=== PATIENT | female | born 1995 | race African-American/Black ===

== ENCOUNTER 2018-03-27 01:39 | Observation (INO) ==
[2018-03-27 03:21] LABS: Apearance,Urine CLEAR (Clear); Bilirubin,Urine Negative (Negative); Blood, Urine Large mg/dL (Negative); Calcium Oxalate Crystals,Urine Occasional /HPF (Few); Glucose,Urine (UA) Negative (Negative); Ketones,Urine Negative (Negative); Nitrite,Urine Negative (Negative); Protein,Urine Negative; RBC,Urine 268 /HPF (0-4); Squamous Epithelial Cell,Urine Occasional /HPF (0-10); Urine Color Straw (Yellow); Urine Specific Gravity 1.005 (1.001-1.035); Urine Urobilinogen < 2.0 EU/DL (0.2-1.0); WBC,Urine 3 /HPF (0-6)
[2018-03-27 04:08] LABS: Basophils % 0.5 % (0.0-0.8); Eosinophils # 0.1 10*3/uL (0.0-0.87); Eosinophils % 1.8 % (0.00-10.9); Hematocrit 35.5 VOL% (35.7-47.0); Hemoglobin 11.6 GM/DL (12.0-16.0); Immature Granulocytes % 0.2 %; Immature Granulocytes Absolute 0.01 #; Lymphocytes # 2.1 10*3/uL (1.4-4.0); Mean Corpuscular HGB Conc 32.7 GM/DL (32-36); Mean Corpuscular Hemoglobin 29 PG (27-34); Mean Corpuscular Volume 87.4 FL (87-102); Mean Platelet Volume 9.5 FL (9.6-12.0); Monocytes # 0.4 10*3/uL (0.11-0.8); Monocytes % 6.4 % (1.7-12.7); Neutrophils # 3.6 10*3/uL (1.4-7.4); Neutrophils % 58.1 % (38.7-73.9); Platelet Count 269 T/CUMM (130-400); Red Blood Count 4.06 MC/CUMM (3.8-5.5); Red Cell Distribution Width 13.6 % (9.3-17.3); White Blood Count 6.2 T/CUMM (4-12)
[2018-03-27 04:21] LABS: Alanine Aminotransferase 14 U/L (13-56); Albumin 3.8 G/DL (3.4-5.0); Alkaline Phosphatase 53 U/L (45-117); Aspartate Amino Transferase 10 U/L (0-37); Bilirubin,Total < 0.39 MG/DL (0.2-1.0); Blood Urea Nitrogen 7 MG/DL (7-18); Calcium 8.9 MG/DL (8.5-10.1); Glucose 91 MG/DL (74-106); Osmolality,Calculated 270.8 MOS/KG (273-304); Potassium 4.1 MMOL/L (3.5-5.1); Sodium 137 MMOL/L (136-145); Total Protein 7.1 G/DL (6.4-8.3)
[2018-03-27] MEDS ORDERED: LACTATED RINGERS 1,000 ML IV ONE (04:48)
[2018-03-27] MEDS ORDERED: fentaNYL 100 MCG/2 ML VIAL ONE (05:34)
[2018-03-27] MEDS ORDERED: MIDAZOLAM 2 MG/2 ML VIAL ONE (05:35)
[2018-03-27] MEDS ORDERED: ceFAZolin 1,000 MG VIAL ONE (05:59)
[2018-03-27] MEDS ORDERED: HYDROmorphone 2 MG/1 ML VIAL IV PRN (06:36)
[2018-03-27] MEDS ORDERED: ONDANSETRON 4 MG/2 ML VIAL IV PRN ×2 (06:36→06:38)
[2018-03-27] MEDS ORDERED: DOCUSATE SODIUM 100 MG CAPSULE PO PRN (06:38)
[2018-03-27] MEDS ORDERED: MAGNESIUM HYDROXIDE SUSP 30 ML UDCUP PO PRN (06:38)
[2018-03-27] MEDS ORDERED: ACETAMINOPHEN 325 MG TABLET PO PRN (06:38)
[2018-03-27] MEDS ORDERED: oxyCODONE/ACETAMINOPHEN 5-325 MG TABLET PO PRN (06:38)
[2018-03-27] MEDS ORDERED: IBUPROFEN 800 MG TABLET PO PRN (06:38)
[2018-03-27] MEDS ORDERED: BENZOCAINE/MENTHOL LOZENGE 18/BOX PO PRN (06:38)
[2018-03-27] MEDS ORDERED: BISACODYL 10 MG SUPP RECTAL PRN (06:38)
[2018-03-27] MEDS ORDERED: PROPOFOL 200 MG/20 ML VIAL IV ONE (06:55)
[2018-03-27] MEDS ORDERED: SEVOFLURANE 1 UNIT/15 MINUTE INH ONE (06:56)
[2018-03-27] MEDS ORDERED: ROCURONIUM 100 MG/10 ML VIAL IV ONE (06:56)
[2018-03-27] MEDS ORDERED: ONDANSETRON 4 MG/2 ML VIAL ONE (06:56)
[2018-03-27] MEDS ORDERED: NEOSTIGMINE 10 MG/10 ML VIAL ONE (06:56)
[2018-03-27] MEDS ORDERED: GLYCOPYRROLATE 0.4 MG/2 ML VIAL ONE (06:56)
[2018-03-27] MEDS ORDERED: MEPERIDINE 25 MG/1 ML VIAL IV PRN (06:58)
[2018-03-27] MEDS ORDERED: MEPERIDINE 25 MG/1 ML VIAL ONE (07:00)
[2018-03-27] MEDS ORDERED: LACTATED RINGERS 1,000 ML IV SCH (07:00)
[2018-03-27 11:43] LABS: Basophils % 0.3 % (0.0-0.8); Eosinophils % 0.3 % (0.00-10.9); Hematocrit 35.4 VOL% (35.7-47.0); Hemoglobin 11.3 GM/DL (12.0-16.0); Immature Granulocytes % 0.3 %; Immature Granulocytes Absolute 0.02 #; Lymphocytes # 1.3 10*3/uL (1.4-4.0); Lymphocytes % 16.5 % (21.3-54.2); Mean Corpuscular HGB Conc 31.9 GM/DL (32-36); Mean Corpuscular Hemoglobin 28 PG (27-34); Mean Corpuscular Volume 88.7 FL (87-102); Mean Platelet Volume 9.3 FL (9.6-12.0); Monocytes # 0.6 10*3/uL (0.11-0.8); Monocytes % 7.1 % (1.7-12.7); Neutrophils # 5.8 10*3/uL (1.4-7.4); Neutrophils % 75.5 % (38.7-73.9); Platelet Count 248 T/CUMM (130-400); Red Blood Count 3.99 MC/CUMM (3.8-5.5); Red Cell Distribution Width 13.4 % (9.3-17.3); White Blood Count 7.7 T/CUMM (4-12)
[2018-03-27] MEDS ORDERED: ceFAZolin 1,000 MG in SYRINGE 1 EACH IV SCH ×2 (12:38→14:00)
[2018-03-27 15:32] VITALS: BP 116/74
== END 2018-03-27 17:35 | disposition home or self-care (01) ==
LOC: N.ED 01:39 → N.OB 01:39
PROVIDERS: ADMIT Specialist; ATTEND Specialist